=== PATIENT | male | born 1970 | race Caucasian/White ===

== ENCOUNTER 2024-04-15 20:30 | Emergency (ER) | payer MEDICAID ==
[~2024-04-15] VITALS: Ht 180.3 cm; Wt 90.7 kg
[2024-04-15 20:35] VITALS: BP 133/81; TEMP 99; O2SAT 98
[2024-04-15] MEDS ORDERED: HYDROCODONE/APAP 5/325MG TABLET ONE (20:42)
[2024-04-15] MEDS: HYDROCODONE/APAP 5/325MG TABLET PO ONE (20:44)
== END 2024-04-15 20:51 | disposition home or self-care (01) ==
LOC: ER 20:34
DX: H59.311 Postprocedural hemorrhage of right eye and adnexa following an ophthalmic procedure (principal); E11.9 Type 2 diabetes mellitus without complications; J44.9 Chronic obstructive pulmonary disease, unspecified; M79.7 Fibromyalgia; Z98.890 Other specified postprocedural states; Y83.8 Other surgical procedures as the cause of abnormal reaction of the patient, or of later complication, without mention of misadventure at the time of the procedure